=== PATIENT | female | born 1990 | race Caucasian/White ===

== ENCOUNTER 2021-09-13 16:01 | Emergency (ER) | payer OTHER ==
[~2021-09-13] VITALS: Ht 157.5 cm; Wt 54.4 kg
[2021-09-13 16:37] VITALS: BP 120/82
--- NOTE | 2021-09-13 17:00 | NUR ---
pt bib bls run c/o near syncopal this am and sob. 99% ra speaking in full sentences. NAD.
[2021-09-13] MEDS ORDERED: ACET-2619 PO (17:28)
[2021-09-13 17:41] VITALS: BP 105/70
--- NOTE | 2021-09-13 17:42 | NUR ---
Patient discharged with v/s stable. Written and verbal after care instructions given and explained. Patient verbalized understanding. Ambulatory with steady gait. All questions addressed prior to discharge. Advised to follow up with PMD.
== END 2021-09-13 17:42 | disposition home or self-care (01) ==
LOC: MED 16:01
DX: U07.1 COVID-19 (principal); R07.9 Chest pain, unspecified; R06.02 Shortness of breath; F41.9 Anxiety disorder, unspecified; K21.9 Gastro-esophageal reflux disease without esophagitis; D64.9 Anemia, unspecified; Z79.899 Other long term (current) drug therapy; Z88.1 Allergy status to other antibiotic agents
CPT/HCPCS: 99281